=== PATIENT | male | born 1945 | race Caucasian/White ===

== ENCOUNTER 2017-08-07 14:06 | Emergency (ER) | payer MEDICARE ==
[~2017-08-07] VITALS: Ht 180.3 cm; Wt 111.3 kg
[~2017-08-07 14:06] MED LIST: ASCO10004 PO; ASCO100072 PO; DOXA4TAB3 PO; HYDR-3237 PO; LECI400C PO; RIVA15TA PO; RIVA20TA PO; VITA400C43 PO
[2017-08-07] MEDS ORDERED: SODIUM CHLORIDE FLUSH 10ML SYR IVF ONE (15:00)
[2017-08-07] MEDS ORDERED: VITA80004 PO (15:13)
[2017-08-07] MEDS ORDERED: ASPI-515 PO (15:13)
[2017-08-07 15:23] LABS: RAPID INFLUENZA A Negative (Negative); RAPID INFLUENZA B Negative (Negative)
[2017-08-07 15:43] LABS: BASOPHILS # (AUTO) 0.08 x10^3/uL (0-0.1); BASOPHILS % (AUTO) 1 % (0-1); EOSINOPHILS # (AUTO) 0.43 x10^3/uL (0-0.4); EOSINOPHILS % (AUTO) 7 % (1-7); LYMPHOCYTES # (AUTO) 1.07 x10^3/uL (1-3.4); LYMPHOCYTES % (AUTO) 16 % (22-44); MD NO; MEAN CORPUSCULAR HEMOGLOBIN 32.1 pg (27.5-34.5); MEAN CORPUSCULAR HGB CONC 33.9 g/dL (33.2-36.2); MEAN CORPUSCULAR VOLUME 94.7 fL (81-97); MEAN PLATELET VOLUME 9.6 fL (7.4-10.4); MONOCYTES # (AUTO) 0.66 x10^3/uL (0.2-0.8); MONOCYTES % (AUTO) 10 % (2-9); NEUTROPHILS # (AUTO) 4.29 x10^3/uL (1.8-6.8); NEUTROPHILS % (AUTO) 66 % (42-75); PLATELET COUNT 166 x10^3/uL (130-400); RED BLOOD COUNT 4.68 x10^6/uL (4.38-5.82)
[2017-08-07 15:51] LABS: ALBUMIN 3.5 g/dL (3.4-5.0); ANION GAP 5 mmol/L (5-15); CALCIUM 8.2 mg/dL (8.5-10.1); CHLORIDE 107 mmol/L (98-107); CREATININE 0.88 mg/dL (0.7-1.3)
[2017-08-07 15:54] LABS: TROPONIN I < 0.015 ng/mL (0.000-0.045)
[2017-08-07 16:57] VITALS: BP 127/86
== END 2017-08-07 16:58 | disposition home or self-care (01) ==
LOC: ED 16:22
DX: J20.9 Acute bronchitis, unspecified (principal); J00 Acute nasopharyngitis [common cold]
CPT/HCPCS: 36415; 71045; 80048; 82040; 83605; 84484; 85025; 87400; 93005; 99285

== ENCOUNTER 2018-08-28 09:51 | Emergency (ER) | payer MEDICARE ==
[~2018-08-28] VITALS: Ht 180.3 cm; Wt 108.9 kg
[~2018-08-28 09:51] MED LIST changes: +ASPI-515 PO; +VITA80004 PO
--- NOTE | 2018-08-28 10:25 | NUR ---
PT TO IMAGING
[2018-08-28 10:51] LABS: BASOPHILS # (AUTO) 0.02 x10^3/uL (0-0.1); BASOPHILS % (AUTO) 0 % (0-1); EOSINOPHILS # (AUTO) 0.21 x10^3/uL (0-0.4); EOSINOPHILS % (AUTO) 4 % (1-7); LYMPHOCYTES # (AUTO) 0.92 x10^3/uL (1-3.4); LYMPHOCYTES % (AUTO) 16 % (22-44); MD NO; MEAN CORPUSCULAR HEMOGLOBIN 33.1 pg (27.5-34.5); MEAN CORPUSCULAR HGB CONC 34.7 g/dL (33.2-36.2); MEAN CORPUSCULAR VOLUME 95.3 fL (81-97); MEAN PLATELET VOLUME 9.1 fL (7.4-10.4); MONOCYTES # (AUTO) 0.66 x10^3/uL (0.2-0.8); MONOCYTES % (AUTO) 11 % (2-9); NEUTROPHILS % (AUTO) 69 % (42-75); PLATELET COUNT 178 x10^3/uL (130-400); RED BLOOD COUNT 4.83 x10^6/uL (4.38-5.82); RED CELL DISTRIBUTION WIDTH 13.4 % (9.4-14.8)
--- NOTE | 2018-08-28 10:52 | NUR ---
PT TO ED FOR INTERMITTENT PAIN UNDER LEFT COLLARBONE X APPROX 4 WEEKS. PT IS UNABLE TO LAY ON THAT SIDE. PT ALSO REPORTS SEVERE PAIN IN RIGHT LOWER FACE X4 WEEKS, WORSE OVER LAST 2 DAYS. PT STATES TAKING ABX FROM [facility], UNKNOWN NAME OR DOSE. CONNECTED TO ALL MONITORS. VSS. CALL [facility]. NO NEEDS AT THIS TIME. AWAITING RESULTS.
[2018-08-28 11:03] LABS: ANION GAP 3 mmol/L (5-15); CALCIUM 8.5 mg/dL (8.5-10.1); CHLORIDE 106 mmol/L (98-107); CREATININE 0.86 mg/dL (0.7-1.3)
[2018-08-28 11:06] VITALS: BP 127/74
[2018-08-28 11:06] LABS: TROPONIN I < 0.015 ng/mL (0.000-0.045)
--- NOTE | 2018-08-28 11:06 | NUR ---
PT RESTING IN ROOM. AWAITING RESUTLS AT [facility] TIME. NO NEESD. CALL [facility].
== END 2018-08-28 11:49 | disposition home or self-care (01) ==
LOC: ED 10:36
DX: K08.89 Other specified disorders of teeth and supporting structures (principal)
CPT/HCPCS: 36415; 71046; 80048; 84484; 85025; 93005; 99284